=== PATIENT | female | born 1995 | race Caucasian/White ===

== ENCOUNTER 2017-12-21 22:51 | Emergency (ER) | payer MEDICAID ==
[~2017-12-21] VITALS: Ht 170.2 cm; Wt 117.5 kg
[2017-12-21 22:56] VITALS: Ht 170.2 cm; Wt 117.5 kg
[2017-12-21 23:55] VITALS: BP 137/92
== END 2017-12-21 23:35 | disposition home or self-care (01) ==
LOC: ED 22:51
DX: R30.0 Dysuria (principal); N30.90 Cystitis, unspecified without hematuria; R03.0 Elevated blood-pressure reading, without diagnosis of hypertension; Z34.91 Encounter for supervision of normal pregnancy, unspecified, first trimester